=== PATIENT | male | born 1960 | race Asian ===

== ENCOUNTER 2018-10-04 05:59 | Inpatient (IN) | payer OTHER ==
[~2018-10-04] VITALS: Ht 170.2 cm; Wt 63.5 kg
[2018-10-04 06:04] VITALS: Ht 170.2 cm; Wt 63.5 kg
[2018-10-04 06:41] LABS: CALCIUM 8.3 mg/dL (8.5-10.1); CARBON DIOXIDE 29.4 mmol/L (21-32); CHLORIDE SERUM 106 mmol/L (98-107); GFR1 > 60 mL/min; GLUCOSE SERUM 138 mg/dL (74-106); POTASSIUM SERUM 3.6 mmol/L (3.5-5.1); SODIUM SERUM 142 mmol/L (136-145)
[2018-10-04 06:58] LABS: BASOPHIL % 0.9 % (0-2); PLATELET COUNT 318 x10^3mcL (130-400); RED CELL DISTRIBUTION WIDTH 12.5 % (11.5-14.5)
[2018-10-04 09:41] LABS: CHOLESTEROL/HDL RATIO 2.5; PHOSPHOROUS 3.2 mg/dL (2.5-4.9); T3 TOTAL 0.97 ng/mL
[2018-10-04 09:54] LABS: FREE T4 0.93 ng/dL (0.76-1.46); T4(THYROXINE) 8.2 ug/dL (4.7-13.3)
[2018-10-04 11:53] LABS: microscopic required? NO
[2018-10-04 12:02] LABS: urine erythrocyte NEGATIVE (NEGATIVE)
[2018-10-04 12:15] LABS: AMPHETAMINE QUAL UR NONE DETECTED (See below)
[2018-10-04 15:06] VITALS: BP 110/71
[2018-10-04 21:10] VITALS: BP 106/63
[2018-10-05 06:05] VITALS: BP 134/89
[2018-10-05 07:02] LABS: BASOPHIL % 0.5 % (0-2); PLATELET COUNT 279 x10^3mcL (130-400); RED CELL DISTRIBUTION WIDTH 12.6 % (11.5-14.5)
[2018-10-05 07:15] LABS: CALCIUM 8.1 mg/dL (8.5-10.1); CHLORIDE SERUM 110 mmol/L (98-107); CREATININE SERUM 0.9 mg/dL (0.7-1.3); GFR1 > 60 mL/min; GLUCOSE SERUM 102 mg/dL (74-106); POTASSIUM SERUM 3.9 mmol/L (3.5-5.1); SODIUM SERUM 144 mmol/L (136-145)
[2018-10-05 10:00] VITALS: BP 127/83
[2018-10-05] MEDS ORDERED: KROGER NIC21 MG/24 H TOP (10:03)
[2018-10-05 10:38] VITALS: BP 127/83
== END 2018-10-05 11:35 | disposition home or self-care (01) | DRG 206 ==
LOC: ED 05:59 → DU 07:50
PROVIDERS: Emergency Medicine; Family Medicine
DX: M94.0 Chondrocostal junction syndrome [Tietze] (principal); I10 Essential (primary) hypertension; F17.210 Nicotine dependence, cigarettes, uncomplicated; E78.5 Hyperlipidemia, unspecified; Z72.89 Other problems related to lifestyle; Z71.6 Tobacco abuse counseling; Z71.41 Alcohol abuse counseling and surveillance of alcoholic
CPT/HCPCS: 83880; 84439; 99406; C9113; J2060; J3490; J7030